=== PATIENT | female | born 1945 | race Hispanic/Latino ===

== ENCOUNTER 2017-06-30 11:34 | Outpatient (CLI) | payer MEDICARE, MEDICAID | END 2017-06-30 11:35 | disposition home or self-care (01) | LOC: BICRAD 11:34 | PROVIDERS: ATTEND Family Medicine | DX: M25.562 Pain in left knee (principal); M25.561 Pain in right knee; R53.83 Other fatigue; I70.90 Unspecified atherosclerosis | CPT/HCPCS: 71046 ==

== ENCOUNTER 2018-03-31 11:48 | Outpatient (CLI) | payer MEDICARE, MEDICAID ==
--- NOTE | 2018-03-31 13:23 | RAD ---
PA AND LATERAL CHEST RADIOGRAPH: Date: 03-31-18 History: Chest pain for one week. Comparison: 06-30-17 FINDINGS: Cardiac silhouette and pulmonary vasculature are within normal limits. There is slight linear density at the left lung base adjacent to the left cardiac border, probably related to either atelectasis or superimposition of structures. Lungs are otherwise clear. Vascular calcification seen in the thoraci c aorta. There is left convex scoliosis of the thoracolumbar spine with what appears to be slight hei ght loss of the L1 vertebral body, but this a stable finding compared to a study in 2017. Degenerativ e changes are also present at this level. No other interval change. IMPRESSION: 1. No acute cardiopulmonary process. 2. Atelectasis left lung base. POS: IFEOMA
--- NOTE | 2018-03-31 13:26 | RAD ---
CERVICAL SPINE THREE VIEWS: 03/31/18 HISTORY: Cervical and thoracic pain for one week. FINDINGS: C1 to C7 is seen on the lateral view. The vertebral body heights are within normal limits. Osteophyte s are present anteriorly at the C4-5 and C5-6 levels. Vertebral body heights are within normal limits and there is no fracture or subluxation seen. Cervicothoracic junction is partially obscured. Prever tebral soft tissues are within normal limits. Odontoid is obscured on the odontoid view but has a nor mal appearance in the lateral projection. There are vascular calcifications seen in the carotid arteries on the left as well as involving the a ortic arch. IMPRESSION: Degenerative changes in the mid cervical spine without fracture or subluxation seen from C1 to C7. Ce rvicothoracic junction not well seen. POS: IFEOMA
--- NOTE | 2018-03-31 13:36 | RAD ---
2 VIEWS THORACIC SPINE: Date: 03/31/18 HISTORY: Thoracic spine pain for 1 week. FINDINGS: There is mild right convex curvature of the thoracic spine. Minimal scattered osteophytes are present . The vertebral body heights appear to be within normal limits and no obvious fracture or subluxation is appreciated. IMPRESSION: Minimal degenerative changes in the thoracic spine. POS: IFEOMA
== END 2018-03-31 11:49 | disposition home or self-care (01) ==
LOC: BICRAD 11:48
PROVIDERS: ATTEND Family Medicine
DX: M54.6 Pain in thoracic spine (principal); R07.9 Chest pain, unspecified; M47.814 Spondylosis without myelopathy or radiculopathy, thoracic region; M47.812 Spondylosis without myelopathy or radiculopathy, cervical region; J98.11 Atelectasis
CPT/HCPCS: 71046; 72040; 72070

== ENCOUNTER 2018-04-01 08:08 | Outpatient (CLI) | payer MEDICARE, MEDICAID ==
--- NOTE | 2018-04-01 09:11 | BD ---
DEXA BONE MINERAL DENSITY STUDY: HISTORY: Osteoporosis screening. COMPARISON: DEXA study from 2015. FINDINGS: Lumbar Spine: BMD (g/cm2) L1 0.646 T-Score: -3.1 -1.1 L2 0.733 T-Score: -2.7 -0.5 L3 0.782 T-Score: -2.7 -0.4 L4 0.740 T-Score: -2.9 -0.5 L1-L4 0.727 T-Score: -2.9 -0.7 WHO classification of osteoporosis. Total T-score is the same as the prior examination. Femoral Neck: 0.721 T-Score: -1.2 0.8 Total Femur: 0.852 T-Score: -0.7 0.9 WHO classification of osteopenia. The femoral neck has improved and the total left hip is unchanged. 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 POS: CET
--- NOTE | 2018-04-01 09:51 | ULT ---
THYROID ULTRASOUND: Date: 04-01-18 History: Thyroid nodule. FINDINGS: The thyroid gland is small in size diffusely and demonstrates generalized heterogeneity. No focal thy roid nodule is delineated. The right lobe of the thyroid gland measures 1.6 cm x 0.6 cm x 0.5 cm with the left lobe measuring 2.8 cm x 0.7 cm x 0.7 cm. The thyroid isthmus measures 0.2 cm in AP dimensio ns. IMPRESSION: Heterogeneous and small size of the thyroid gland. No discrete thyroid nodule is delineated. POS: IFEOMA
== END 2018-04-01 08:09 | disposition home or self-care (01) ==
LOC: BICMAMMO 08:08
PROVIDERS: ATTEND Family Medicine
DX: Z12.31 Encounter for screening mammogram for malignant neoplasm of breast (principal); E04.1 Nontoxic single thyroid nodule; R92.1 Mammographic calcification found on diagnostic imaging of breast; Z78.0 Asymptomatic menopausal state
CPT/HCPCS: 76536; 77063; 77067; 77080

== ENCOUNTER 2018-04-22 08:23 | Outpatient (CLI) | payer MEDICARE, MEDICAID ==
--- NOTE | 2018-04-22 09:17 | CT ---
CT BRAIN WITHOUT CONTRAST: History: Manning's palsy. Right sided facial droop. FINDINGS: No evidence of infarct, hemorrhage, midline shift or abnormal extraaxial fluid collection is seen. Th e ventricular size is appropriate and the basilar cisterns patent. The bony calvarium is intact. Ther e is mild mucosal disease in the paranasal sinuses. IMPRESSION: No CT evidence of acute intracranial process. POS: OFF
== END 2018-04-22 08:24 | disposition home or self-care (01) ==
LOC: BICCT 08:23
PROVIDERS: ATTEND Family Medicine
DX: G51.0 Bell's palsy (principal)
CPT/HCPCS: 70450

== ENCOUNTER 2018-05-27 15:14 | Outpatient (CLI) | payer MEDICARE, MEDICAID ==
--- NOTE | 2018-05-27 15:57 | RAD ---
EXAM: XR Knee Lt 4 View STANDARD PROVIDED CLINICAL HISTORY: Left knee pain for one month. COMPARISON: None FINDINGS: No fracture or dislocation is seen. A few scattered tiny osteophytes are identified. There is no join t space narrowing. A small joint effusion is present. IMPRESSION: Small knee joint effusion without evidence of acute osseous abnormality. If there is concern for inte rnal derangement, MRI left knee is suggested for further evaluation.
== END 2018-05-27 15:15 | disposition home or self-care (01) ==
LOC: BICRAD 15:14
PROVIDERS: ATTEND Family Medicine
DX: M17.12 Unilateral primary osteoarthritis, left knee (principal); M25.562 Pain in left knee; M25.462 Effusion, left knee

== ENCOUNTER 2020-06-13 13:55 | Outpatient (CLI) | payer MEDICARE, MEDICAID | END 2020-06-13 13:56 | disposition home or self-care (01) | LOC: BICMAMMO 13:55 | PROVIDERS: ATTEND Family Medicine | DX: Z12.31 Encounter for screening mammogram for malignant neoplasm of breast (principal); M25.511 Pain in right shoulder; R07.9 Chest pain, unspecified; Z13.820 Encounter for screening for osteoporosis | CPT/HCPCS: 71045; 77063; 77067; 77080 ==

== ENCOUNTER 2021-10-19 14:14 | Outpatient (CLI) | payer MEDICARE, MEDICAID | END 2021-10-19 14:15 | disposition home or self-care (01) | LOC: BICRAD 14:14 | PROVIDERS: ATTEND Family Medicine | DX: R07.9 Chest pain, unspecified (principal); R05.9 Cough, unspecified | CPT/HCPCS: 71046 ==

== ENCOUNTER 2021-11-02 08:53 | Outpatient (CLI) | payer MEDICARE, MEDICAID | END 2021-11-02 08:54 | disposition home or self-care (01) | LOC: BICMAMMO 08:53 | PROVIDERS: ATTEND Family Medicine | DX: Z12.31 Encounter for screening mammogram for malignant neoplasm of breast (principal); Z13.820 Encounter for screening for osteoporosis; M85.89 Other specified disorders of bone density and structure, multiple sites; N63.20 Unspecified lump in the left breast, unspecified quadrant | CPT/HCPCS: 77063; 77067; 77080 ==

== ENCOUNTER 2021-11-09 13:42 | Outpatient (CLI) | payer MEDICARE, OTHER | END 2021-11-09 13:43 | disposition home or self-care (01) | LOC: BICULT 13:42 | PROVIDERS: ATTEND Family Medicine | DX: N63.20 Unspecified lump in the left breast, unspecified quadrant (principal); N60.02 Solitary cyst of left breast ==

== ENCOUNTER 2023-10-24 05:45 | Inpatient (IN) | payer OTHER, MEDICAID ==
[2023-10-23 12:41] VITALS: BMI 23.0
[2023-10-24] MEDS ORDERED: Vancomycin HCl 20 MG, Gentamicin (PEDI) 8 MG, Admixture Fee 1 EACH in Sodium Chloride 0... FS SCH (06:15)
[2023-10-24] MEDS ORDERED: Lidocaine 1% (PF) 30 ML VIAL ONE (06:16)
[2023-10-24] MEDS ORDERED: EPINEPHrine 1 MG/ML VIAL ONE (06:16)
[2023-10-24] MEDS ORDERED: Vancomycin 1 GM VIAL ONE (06:16)
[2023-10-24] MEDS ORDERED: Bacitracin Zinc Ointment 30 gm TUBE ONE (06:16)
[2023-10-24] MEDS ORDERED: Thrombin 5000 UNITS/5 ML VIAL ONE (06:17)
[2023-10-24] MEDS ORDERED: fentaNYL PF 100 MCG/2 ML SYRINGE ONE (06:19)
[2023-10-24] MEDS ORDERED: PROPOFOL 20 ML ONE (06:19)
[2023-10-24] MEDS ORDERED: Lidocaine 1% PF 5 ML VIAL ONE (06:27)
[2023-10-24] MEDS ORDERED: Rocuronium Bromide 10 MG/ML (10ML VIAL) ONE (06:27)
[2023-10-24] MEDS ORDERED: Vancomycin 1 GM/200 ML (FROZEN) BAG ONE (06:50)
[2023-10-24] MEDS ORDERED: Labetalol HCl 100 MG/20 ML VIAL SLOW IVP PRN (07:01)
[2023-10-24] MEDS ORDERED: Ondansetron PF 4 MG/2 ML Vial IVP PRN (07:01)
[2023-10-24] MEDS ORDERED: Docusate 100 MG CAP PO PRN (07:01)
[2023-10-24] MEDS ORDERED: Acetaminophen 325 MG TAB PO PRN (07:01)
[2023-10-24] MEDS ORDERED: HYDROcodone/Acetaminophen 7.5/325 mg Tablet PO PRN (07:01)
[2023-10-24] MEDS ORDERED: hydrALAZINE 20 MG/ML VIAL SLOW IVP PRN (07:01)
[2023-10-24] MEDS ORDERED: LEVETIRACETAM 500 MG PO SCH (07:15)
[2023-10-24] MEDS ORDERED: PHENYLEPHRINE-NS 100 MCG/ML 10 ML SYRINGE ONE (07:29)
[2023-10-24] MEDS ORDERED: SUGAMMADEX SODIUM 200 MG/2 ML VIAL ONE (08:20)
[2023-10-24] MEDS ORDERED: Dexamethasone 20 MG/5 ML VIAL ONE (08:32)
[2023-10-24] MEDS ORDERED: Ondansetron PF 4 MG/2 ML Vial ONE (08:32)
[2023-10-24] MEDS ORDERED: Levothyroxine Sodium 100 MCG TAB PO SCH (09:00)
[2023-10-24] MEDS ORDERED: Non-Formulary Item 1 EACH (Fluconazole [Fluconazole] 200 MG Tablet) PO SCH (09:00)
[2023-10-24] MEDS ORDERED: fentaNYL 50 mcg/mL 1 mL Vial ONE (10:03)
[2023-10-24] MEDS: Montelukast Sodium 10 mg Tablet PO SCH (14:28)
[2023-10-24] MEDS: Sodium Chloride 0.9% 1,000 ML IV SCH (14:28)
[2023-10-24] MEDS: Fluconazole 100 MG TAB PO SCH (14:28)
[2023-10-24] MEDS: levETIRAcetam 500 MG TAB PO SCH (14:28)
[2023-10-24] MEDS: Pantoprazole DR 40 MG TAB PO SCH (14:28)
[2023-10-24] MEDS: Vancomycin (BATCH) 1.25 GM in Premix 1 BAG IVPB SCH (17:47)
[2023-10-25] MEDS: Levothyroxine Sodium 112 MCG TAB PO SCH (09:08)
[2023-10-26 15:37] VITALS: BP 138/73; TEMP 97.8
[2023-10-30 16:12] LABS: Fungus Stain Final report (.)
== END 2023-10-26 17:30 | disposition home or self-care (01) | DRG 33 ==
LOC: SURG A 05:45
PROVIDERS: ADMIT Neurological Surgery; ATTEND Neurological Surgery
PROC: 00160J6 Bypass Cerebral Ventricle to Peritoneal Cavity with Synthetic Substitute, Open Approach (ICD-10-PCS; principal; 2023-10-24)
DX: G91.9 Hydrocephalus, unspecified (principal); K21.9 Gastro-esophageal reflux disease without esophagitis; E78.00 Pure hypercholesterolemia, unspecified; I10 Essential (primary) hypertension; Z79.890 Hormone replacement therapy; Z79.899 Other long term (current) drug therapy; Z98.890 Other specified postprocedural states; Z88.8 Allergy status to other drugs, medicaments and biological substances
CPT/HCPCS: 87070; 87102; 87205; 87206; A6258; C1889; J0171; J1100; J2001; J2405; J2704; J3010; J3370; J3370-JW; J7030